=== PATIENT | female | born 1970 | race Caucasian/White ===

== ENCOUNTER → 2016-09-22 | Outpatient (CLI) | payer BC ==
[~2016-09-22] MED LIST: PRENTAB26 PO
--- NOTE | 2016-09-23 08:08 | MAMMOGRAPHY REPORT ---
BILATERAL DIGITAL SCREENING MAMMOGRAM TOMOSYNTHESIS WITH CAD: 09/22/2016 CLINICAL HISTORY: Routine screening. Patient has no complaints. TECHNIQUE: Breast tomosynthesis in addition to standard 2D mammography was performed. Current study was also evaluated with a Computer Aided Detection (CAD) system. COMPARISON: Comparison is made to exams dated: 09/21/2015 mammogram, 09/09/2013 mammogram, 09/17/2014 m ammogram, and 09/04/2012 mammogram - [facility]. BREAST COMPOSITION: There are scattered areas of fibroglandular density in both breasts. FINDINGS: There is an asymmetry in the upper outer middle one third, (approximate 1:00) left breast for which additional spot compression tomosynthesis views and possibly ultrasound are recommended. A few benign rim calcifications in the right breast. No other suspicious mass, focal area of archite ctural distortion or suspicious calcifications are seen bilaterally. IMPRESSION: ACR BI-RADS CATEGORY 0: INCOMPLETE EVALUATION: NEED ADDITIONAL IMAGING EVALUATION The asymmetry in the upper outer middle one third of the left breast needs additional evaluation. The patient will be called to schedule an appointment. Approximately 10% of breast cancers are not detected with mammography. A negative mammographic report should not delay biopsy if a clinically suggestive mass is present. Cheryl Weiss M.D. ay/:09/22/2016 16:21:30 Patch Washer: Lucero MACEDO)(Zhang), [facility] letter sent: Addl Imaging 0 BI-RADS Code: ACR BI-RADS Category 0: Incomplete Evaluation: Need Additional Imaging Evaluation
== END | disposition home or self-care (01) ==
LOC: C.MAMM 14:56
PROVIDERS: ATTEND Obstetrics & Gynecology
DX: Z12.31 Encounter for screening mammogram for malignant neoplasm of breast (principal); N64.89 Other specified disorders of breast

== ENCOUNTER → 2016-10-04 | Outpatient (CLI) | payer BC ==
--- NOTE | 2016-10-05 07:45 | MAMMOGRAPHY REPORT ---
UNILATERAL LEFT DIGITAL DIAGNOSTIC MAMMOGRAM TOMOSYNTHESIS AND TARGETED LEFT ULTRASOUND: 10/04/2016 CLINICAL HISTORY: 46-year-old woman called back from screening mammography for an asymmetry in the la teral middle one third of the left breast, best seen on the CC view. Family history of breast cancer = maternal grandmother. TECHNIQUE: Spot compression left CC and MLO 2-D and tomosynthesis images were obtained. A repeat sp ot compression left CC tomosynthesis view was performed more laterally than the first image. COMPARISON: Comparison is made to exams dated: 09/22/2016 mammogram, 09/21/2015 mammogram, 09/17/2014 m ammogram, 09/04/2012 mammogram, and 09/09/2013 mammogram - [facility]. BREAST COMPOSITION: There are scattered areas of fibroglandular density in the left breast. FINDINGS: There is partial effacement of the asymmetry in the lateral, middle one third of the breast on both of the spot compression CC views. There is possible associated architectural distortion angel reciated on the screening mammogram which is equivocal on the current spot compression views. No cor responding mass or definite architectural distortion is identified on the spot compression MLO view a nd corresponding tomosynthesis images. There are no suspicious microcalcifications. Further evaluat ion with ultrasound was performed. Targeted ultrasound was performed in the lateral left breast including the 12:00 and 6:00 axes. Sono graphically normal fibroglandular tissue is seen without a discrete solid or cystic mass. No archite ctural distortion is appreciated in real-time scanning. IMPRESSION: ACR-BI-RADS CATEGORY 3: PROBABLY BENIGN, TARGETED ULTRASOUND ACR-BI-RADS CATEGORY 3: PRO BABLY BENIGN There is effacement of the left breast asymmetry and no definite architectural distortion that persis ts on the spot compression tomosynthesis images. No suspicious sonographic correlate was seen. Alth ough the asymmetry most likely represented normal overlapping fibroglandular tissue and fibrolinear m arkings, a short interval follow-up left diagnostic mammogram including tomosynthesis images and poss ible repeat ultrasound is recommended to ensure stability in 6 months. These results and recommendations were discussed with the patient at the time of the exam. Approximately 10% of breast cancers are not detected with mammography. A negative mammographic report should not delay biopsy if a clinically suggestive mass is present. Cheryl Weiss M.D. ay/:10/04/2016 14:51:58 Comptroller: Kandice Gooden RT(R)(M), [facility] letter sent: Follow Up Recommended 3 BI-RADS Code: ACR-BI-RADS Category 3: Probably Benign Ultrasound BI-RADS: ACR-BI-RADS Category 3: Pr obably Benign
== END | disposition home or self-care (01) ==
LOC: C.MAMM 13:52
PROVIDERS: ATTEND Obstetrics & Gynecology
DX: N64.89 Other specified disorders of breast (principal)

== ENCOUNTER → 2017-04-10 | Outpatient (CLI) | payer BC ==
--- NOTE | 2017-04-10 15:19 | MAMMOGRAPHY REPORT ---
UNILATERAL LEFT DIGITAL DIAGNOSTIC MAMMOGRAM TOMOSYNTHESIS WITH CAD: 04/10/2017 CLINICAL HISTORY: 47-year-old woman presents for follow-up in the left breast for an effacing asymmet ry and effacing architectural distortion in the lateral left breast. TECHNIQUE: Left CC and MLO 2-D and tomosynthesis images were obtained. Current study was also evalu ated with a Computer Aided Detection (CAD) system. COMPARISON: Comparison is made to exams dated: 10/04/2016 mammogram, 10/04/2016 ultrasound, 09/22/2016 ma mmogram, 09/21/2015 mammogram, 09/17/2014 mammogram, and 09/09/2013 mammogram - [facility]ter. BREAST COMPOSITION: There are scattered areas of fibroglandular density in the left breast. FINDINGS: The previously observed asymmetry in the slightly lateral, middle one third of the left zoila ast on the CC view is no longer seen, confirming benignity. Currently, there is no evidence of a yousif picious mass, focal area of architectural distortion, asymmetry or suspicious microcalcifications in the left breast. Recommend return to annual screening mammography schedule, due in August 2017. IMPRESSION: ACR BI-RADS CATEGORY 2: BENIGN The previously observed asymmetry in the slightly lateral, middle one third of the left breast is no longer seen, confirming benignity. There is no mammographic evidence of malignancy in the left breas t. Return to annual mammogram screening schedule is recommended. The patient has been verbally notif ied of the results. Approximately 10% of breast cancers are not detected with mammography. A negative mammographic report should not delay biopsy if a clinically suggestive mass is present. Cheryl Weiss M.D. ay/:04/10/2017 14:55:23 Child Protective Services Social Worker: Kandice MACEDO)(Zhang), [facility] letter sent: Normal 1/2 BI-RADS Code: ACR BI-RADS Category 2: Benign
== END | disposition home or self-care (01) ==
LOC: C.MAMM 13:35
PROVIDERS: ATTEND Obstetrics & Gynecology
DX: R92.8 Other abnormal and inconclusive findings on diagnostic imaging of breast (principal)

== ENCOUNTER → 2017-10-09 | Outpatient (CLI) | payer BC ==
--- NOTE | 2017-10-10 14:58 | MAMMOGRAPHY REPORT ---
BILATERAL DIGITAL SCREENING MAMMOGRAM TOMOSYNTHESIS WITH CAD: 10/09/2017 CLINICAL HISTORY: Routine screening. TECHNIQUE: The study was acquired using full field digital technology and interpreted from soft copy. Breast tomosynthesis in addition to standard 2D mammography was performed. Current study was also ev aluated with a Computer Aided Detection (CAD) system. COMPARISON: Comparison is made to exams dated: 04/10/2017 mammogram, 09/22/2016 mammogram, 09/21/2015 m ammogram, 09/17/2014 mammogram, 09/09/2013 mammogram, and 09/04/2012 mammogram - [facility] nter. BREAST COMPOSITION: There are scattered areas of fibroglandular density in both breasts. FINDINGS: An asymmetry is no longer seen in the slightly lateral, middle one third of the left breast , confirming benign overlapping fibroglandular tissue. There are a few scattered stable benign rim c alcifications. No suspicious mass, architectural distortion or cluster of microcalcifications is seen . IMPRESSION: ACR BI-RADS CATEGORY 1: NEGATIVE There is no mammographic evidence of malignancy. A 1 year screening mammogram is recommended.( [id number]) The patient will receive written notification of the results. Some breast cancers are not detected with mammography. A negative mammographic report should not yosef y biopsy if a clinically suggestive mass is present. hCeryl Weiss M.D. ay/:10/09/2017 16:23:02 Shirt Operator: RT Lily(R)(M), [facility] letter sent: Normal 1/2 BI-RADS Code: ACR BI-RADS Category 1: Negative
== END | disposition home or self-care (01) ==
LOC: C.MAMM 14:28
PROVIDERS: ATTEND Obstetrics & Gynecology
DX: Z12.31 Encounter for screening mammogram for malignant neoplasm of breast (principal)